=== PATIENT | female | born 1980 | race Caucasian/White ===

== ENCOUNTER 2016-11-04 09:22 | Emergency (ER) | payer SELFPAY ==
[~2016-11-04] VITALS: Ht 154.9 cm; Wt 70.0 kg
[~2016-11-04 09:22] MED LIST: IBUP-1542 PO; PREN-39 PO; TRAM50TA2 PO
[2016-11-04 09:30] VITALS: Ht 154.9 cm; Wt 70.0 kg
[2016-11-04] MEDS ORDERED: ACETAMINOPHEN 500 MG TAB PO STA (09:45)
[2016-11-04] MEDS ORDERED: ONDANSETRON (ODT) 4 MG TAB ODT STA (09:45)
--- NOTE | 2016-11-04 09:50 | ERD ---
ER Documentation Chief Complaint Date/Time DATE: 11/04/16 TIME: 09:48 Chief Complaint pt bib family with vomiting since this am, unk preg status HPI Patient is a 35-year-old female with no past medical history who presents to the ED with nonbloody nonbilious emesis and nonbloody nonblack tarry tarry diarrhea since this morning. She states that she had [place] food yesterday and developed symptoms this morning. She has generalized abdominal pain with cramping. She also complains of mild body aches. Denies headache or dizziness , neck pain or neck stiffness. Denies chest pain, cough, shortness of breath or difficulty breathing. She has a decrease in appetite but she is tolerating mild fluids today. Denies fever or chills. Denies sick contacts. Denies dysuria. Denies vaginal bleeding or pelvic pain. ROS All systems reviewed and are negative except as per history of present illness. Medications Home Meds Active Scripts Electrolyte,Oral (Pedialyte) 1,000 Ml Solution, 100 ML PO Q6 Y for VOMITTING for 14 Days, ML Prov:ANNALEE KRISHNAN PA-C 11/04/16 Ondansetron (Ondansetron Odt) 4 Mg Tab.rapdis, 4 MG PO Q6H Y for NAUSEA AND/OR VOMITING, #20 TAB Prov:ANNALEE KRISHNAN PA-C 11/04/16 Ibuprofen* (Motrin*) 600 Mg Tab, 600 MG PO Q6, #30 TAB Prov:ANABEL MCCLELLAND MD 08/28/15 Tramadol HCl (Tramadol HCl) 50 Mg Tablet, 50 MG PO Q4 Y for PAIN, #20 TAB Prov:ANABEL MCCLELLAND MD 08/28/15 Reported Medications Vits W-Ca,Fe,Fa(<1MG) ( Vitamins) 1 Tab Tablet, 1 TAB PO for 7 Days 01/08/15 Allergies Allergies: Coded Allergies: No Known Allergy (Unverified , 01/08/15) PMhx/Soc Medical and Surgical Hx: pt denies Medical Hx, pt denies Surgical Hx History of Surgery: No Anesthesia Reaction: No Hx Neurological Disorder: No Hx Respiratory Disorders: No Hx Cardiac Disorders: No Hx Psychiatric Problems: No Hx Miscellaneous Medical Probl: No Hx Alcohol Use: No Hx Substance Use: No Hx Tobacco Use: No Smoking Status: Never smoker FmHx Family History: No coronary disease, No diabetes, No other Physical Exam Vitals Vital Signs Date Time Temp Pulse Resp B/P Pulse Ox O2 Delivery O2 Flow Rate FiO2 11/04/16 09:30 97.2 106 16 122/58 98 Physical Exam GENERAL: Well-developed, well-nourished female. Appears in no acute distress. HEAD: Normocephalic, atraumatic. EYES: Pupils are equally reactive bilaterally. EOMs grossly intact. No conjunctival erythema. ENT: Moist mucous membranes. No uvula deviation. No kissing tonsils. No exudates. NECK: Supple. No lymphadenopathy or thyromegaly. No meningismus. negative kernig. negative brudinski. LUNG: Clear to auscultation bilaterally. No rhonchi, wheezing, rales or coarse breath sounds. HEART: Regular rate and rhythm. No murmurs, rubs or gallops. ABDOMEN: No scars, ecchymosis or rashes noted. Soft, and nondistended. Positive bowel sounds in all four quadrants. No rebound tenderness, no guarding. (-) McBurneys point tenderness. No CVA tenderness. No focal tenderness. Generalized tenderness in the upper abdomen. BACK: No midline tenderness. Extremities: Equal pulses bilaterally. No peripheral clubbing, cyanosis or edema. No unilateral leg swelling. NEUROLOGIC: Alert and oriented. Moving all four extremities. 5/5 strength in all extremities. Normal speech. Steady gait. SKIN: Normal color. Warm and dry. No rashes or lesions. Capillary refill < 2 seconds Result Diagram: 11/04/16 1115 11/04/16 1115 Results 24 hrs Laboratory Tests Test 11/04/16 10:26 11/04/16 11:15 Bedside Urine pH (LAB) 6.0 Bedside Urine Protein (LAB) 2+ Bedside Urine Glucose (UA) Negative Bedside Urine Ketones (LAB) Negative Bedside Urine Blood 2+ Bedside Urine Nitrite (LAB) Negative Bedside Urine Leukocyte Esterase (L Negative White Blood Count 8.810^3/ul Red Blood Count 4.6710^6/ul Hemoglobin 13.8g/dl Hematocrit 40.4% Mean Corpuscular Volume 86.5fl Mean Corpuscular Hemoglobin 29.6pg Mean Corpuscular Hemoglobin Concent 34.2g/dl Red Cell Distribution Width 12.9% Platelet Count 28828^3/UL Mean Platelet Volume 10.6fl Neutrophils % 82.1% Lymphocytes % 5.7% Monocytes % 5.8% Eosinophils % 5.6% Basophils % 0.5% Nucleated Red Blood Cells % 0.0/100WBC Neutrophils # 7.210^3/ul Lymphocytes # 0.510^3/ul Monocytes # 0.510^3/ul Eosinophils # 0.510^3/ul Basophils # 0.010^3/ul Nucleated Red Blood Cells # 0.010^3/ul Sodium Level 144mmol/L Potassium Level 3.6mmol/L Chloride Level 105mmol/L Carbon Dioxide Level 23mmol/L Anion Gap 20 Blood Urea Nitrogen 13mg/dl Creatinine 0.55mg/dl Glucose Level 108mg/dl Calcium Level 9.2mg/dl Total Bilirubin 1.2mg/dl Direct Bilirubin 0.00mg/dl Indirect Bilirubin 1.2mg/dl Aspartate Amino Transf (AST/SGOT) 49IU/L Alanine Aminotransferase (ALT/SGPT) 59IU/L Alkaline Phosphatase 106IU/L Total Protein 9.0g/dl Albumin 5.0g/dl Globulin 4.00g/dl Albumin/Globulin Ratio 1.25 Lipase 72U/L Current Medications Medications (Trade) Dose Ordered Sig/Rachel Route PRN Reason Start Time Stop Time Status Last Admin Dose Admin Ondansetron HCl (Zofran Odt) 4 mg ONCE STAT ODT 11/04/16 09:45 11/04/16 09:46 DC 11/04/16 09:52 Acetaminophen (Tylenol Tab) 500 mg ONCE STAT PO 11/04/16 09:45 11/04/16 09:46 DC 11/04/16 09:52 Miscellaneous Medication (Gi Cocktail (2)) 40 ml ONCE ONCE PO 11/04/16 11:00 11/04/16 11:01 DC 11/04/16 11:19 Procedures/MDM ER COURSE: I kept the patient and/or family informed of laboratory and diagnostic imaging results throughout the emergency room course. EKG, MONITORS, & DIAGNOSTIC IMAGING: [place] [id number] Radiology Main Line: [phone] DIAGNOSTIC IMAGING REPORT Patient: KELVIN CALLE : 1980 Age: 35 Sex: F MR #: [id number] DOS: 11/04/16 1048 Ordering MD: ANNALEE KRISHNAN PA-C Location: [facility] [place] Room/Bed: PROCEDURE: US Abdomen Limited. CLINICAL INDICATION: Epigastric pain TECHNIQUE: Multiple real-time longitudinal and transverse images were acquired of the patient's right abdomen and retroperitoneum utilizing a curved array transducer. COMPARISON: None FINDINGS: Pancreas: The pancreas is suboptimally visualized in the tail. There is no significant abnormality in the visualized portion. The main pancreatic duct is not dilated. Liver: The liver shows normal shape, parenchymal echogenicity and echotexture. The right hepatic lobe measures 17.6 cm craniocaudal, which is within normal limits. There is no definite focal lesion visualized in the liver. Bile ducts: The intrahepatic bile ducts are not dilated. Common bile duct measures 3.3 mm in diameter, within normal limits. Gallbladder: The gallbladder is unremarkable without cholelithiasis, wall thickening, pericholecystic fluid, or sonographic Smith's sign. Kidneys: The right kidney measures 11.0 x 4.6 x 6.4 cm. The parenchymal echogenicity and thickness appear within normal range. No focal lesions are visualized. No hydronephrosis. There is no ascites visualized in the right abdomen. RPTAT: ZZ IMPRESSION: Unremarkable ultrasound of the right abdomen. .Sandra Ferrell MD, MD Date Time Electronically viewed and signed by .Sandra Ferrell MD, MD on 11/04/2016 12: 24 .T/ CC: ANNALEE KRISHNAN PA-C MEDICATIONS: Zofran, Tylenol. Tolerated well with no adverse reaction. LAB INTERPRETATION: CBC showed no evidence of systemic infection or severe anemia. CMP showed no evidence of electrolyte abnormalities, severe acidosis, alkalosis, renal failure , or liver disease. Lipase showed no evidence of acute pancreatitis. UA showed no evidence of leukocytes, nitrites or hematuria. Urine test was negative. MEDICAL DECISION MAKING: This is a 35-year-old female who presents with abdominal pain, nausea, vomiting , diarrhea 1 day. Vital signs were reviewed. Patient is afebrile. Patient is not hypoxic. Patient is not toxic or ill-appearing. Patient likely has vomiting and diarrhea of viral etiology. Her ultrasound is by radiologist unremarkable. Low suspicion for ACS, AAA, perforated ulcer, bowel obstruction, cholecystitis, choledocholithiasis, cholangitis, pancreatitis, hepatic abscess, appendicitis, diverticulitis, gastroenteritis, hepatitis, peptic ulcer disease, HELLP syndrome. Patient does not show signs of dehydration. Patient has moist mucous membranes. DISCHARGE: At this time, patient is stable for discharge and outpatient management with no new complaints during the ER course. Patient was sent home with Zofran, Tylenol , Pedialyte. Patient will be discharged home with instructions to recheck for new or worsening symptoms such as fever, nausea, weakness, LOC and to follow up with primary care in the next 1-2 days. Patient was advised to return to the ER for any new or worsening symptoms. Plan was discussed and patient and/or family understands and agrees. Home instructions were given. Departure Diagnosis: Primary Impression: Vomiting and diarrhea Condition: Stable ANNALEE KRISHNAN PA-C November 04, 2016 09:50
[2016-11-04 10:24] LABS: URINE BLOOD (Dip) POC 2+ (NEGATIVE)
[2016-11-04] MEDS ORDERED: LIDOCAINE/MYLANTA 40 ML BTL PO ONE (11:00)
[2016-11-04 11:25] LABS: ADD SCAN DIFF NO
[2016-11-04 11:51] LABS: ABNORMAL IP MESSAGE 1; BASOPHILS % 0.5 % (0.0-2.0); EOSINOPHILS # 0.5 10^3/ul (0.0-0.5); EOSINOPHILS % 5.6 % (0.0-7.0); HEMATOCRIT 40.4 % (37.0-47.0); HEMOGLOBIN 13.8 g/dl (12.0-16.0); LYMPHOCYTES # 0.5 10^3/ul (0.8-2.9); LYMPHOCYTES % 5.7 % (15.0-51.0); MEAN CORPUSCULAR HEMOGLOBIN 29.6 pg (29.0-33.0); MEAN CORPUSCULAR HGB CONC 34.2 g/dl (32.0-37.0); MEAN CORPUSCULAR VOLUME 86.5 fl (82.0-101.0); MEAN PLATELET VOLUME 10.6 fl (7.4-10.4); MONOCYTE # 0.5 10^3/ul (0.3-0.9); MONOCYTES % 5.8 % (0.0-11.0); NEUTROPHIL # 7.2 10^3/ul (1.6-7.5); NEUTROPHILS % 82.1 % (39.0-77.0); PLATELET COUNT 312 10^3/UL (140-415); RED BLOOD COUNT 4.67 10^6/ul (4.20-5.40); RED CELL DISTRIBUTION WIDTH 12.9 % (11.5-14.5); WHITE BLOOD COUNT 8.8 10^3/ul (4.8-10.8)
--- NOTE | 2016-11-04 12:24 | RADRPT ---
PROCEDURE: US Abdomen Limited. CLINICAL INDICATION: Epigastric pain TECHNIQUE: Multiple real-time longitudinal and transverse images were acquired of the patient's ri t abdomen and retroperitoneum utilizing a curved array transducer. COMPARISON: None FINDINGS: Pancreas: The pancreas is suboptimally visualized in the tail. There is no significant abnormality in the visualized portion. The main pancreatic duct is not dilated. Liver: The liver shows normal shape, parenchymal echogenicity and echotexture. The right hepatic lo be measures 17.6 cm craniocaudal, which is within normal limits. There is no definite focal lesion v isualized in the liver. Bile ducts: The intrahepatic bile ducts are not dilated. Common bile duct measures 3.[address], within normal limits. Gallbladder: The gallbladder is unremarkable without cholelithiasis, wall thickening, pericholecyst ic fluid, or sonographic Smith's sign. Kidneys: The right kidney measures 11.0 x 4.6 x 6.4 cm. The parenchymal echogenicity and thickness appear within normal range. No focal lesions are visualized. No hydronephrosis. There is no ascites visualized in the right abdomen. RPTAT: ZZ IMPRESSION: Unremarkable ultrasound of the right abdomen. .Sandra Ferrell MD, Date Time Electronically viewed and signed by .Sandra Ferrell MD, on 11/04/2016 12:24 .T/
[2016-11-04 12:26] LABS: ALBUMIN/GLOBULIN RATIO 1.25; BILIRUBIN,INDIRECT 1.2 mg/dl (0-1.1); BILIRUBIN,TOTAL 1.2 mg/dl (0.2-1.3); CALCIUM 9.2 mg/dl (8.4-10.2); CREATININE 0.55 mg/dl (0.44-1.00); POTASSIUM 3.6 mmol/L (3.5-5.1)
[2016-11-04] MEDS ORDERED: ONDA4TAB14 PO (12:29)
[2016-11-04] MEDS ORDERED: ELEC100080 PO (12:29)
== END 2016-11-04 12:58 | disposition home or self-care (01) ==
LOC: FTE 09:22
DX: R11.10 Vomiting, unspecified (principal); R19.7 Diarrhea, unspecified
CPT/HCPCS: 36415; 76705; 80053; 81003; 83690; 85025